=== PATIENT | male | born 1995 | race Caucasian/White ===

== ENCOUNTER 2018-03-18 22:35 | Emergency (ER) | payer OTHER ==
[~2018-03-18] VITALS: Ht 167.6 cm; Wt 59.4 kg
--- NOTE | 2018-03-18 23:12 | RADIOLOGY REPORT ---
EXAMINATION: XR CHEST CLINICAL INFORMATION: Dry cough. Shortness of breath. COMPARISON: None TECHNIQUE: 2 views of the chest were obtained. FINDINGS: There is a small patchy infiltrate in the right upper lobe mid lung seen on the PA view of chest. The left lung is clear. There is no pleural effusion. The heart size is normal. The cardiac and mediastinal contours are normal. There is no pulmonary vascular congestion. IMPRESSION: Small patchy right upper lobe pneumonia.
[2018-03-18] MEDS ORDERED: DOXYCYCLINE HY100 M2 PO (23:24)
--- NOTE | 2018-03-18 23:25 | ED INFLUENZA/URI COMPLAINT ---
History of Present Illness General Chief Complaint: Upper Respiratory Sx/Fever Stated Complaint: COUGH AND CONGESTION X 2 DAYS NOW TEMP 104.4 Source: patient Exam Limitations: no limitations Vital Signs & Intake/Output Vital Signs & Intake/Output Vital Signs Date Time Temp Pulse Resp B/P B/P Pulse O2 O2 Flow FiO2 Mean Ox Delivery Rate 03/18 2328 100.1 64 18 122/62 98 Room Air 03/18 2320 98 Room Air 03/18 2314 100.1 03/18 2314 100.1 03/181 102.0 03/188 102.0 65 18 125/65 97 Room Air ED Intake and Output 03/19 0000 03/18 1200 Intake Total 0 Output Total Balance 0 Intake, Oral 0 Patient 131 lb Weight Weight Reported by Patient Measurement Method Allergies Coded Allergies: cat dander (ITCHY PER PT 03/18/18) Reconcile Medications Doxycycline Hyclate 100 MG CAPSULE 1 CAP PO BID pneumonia Triage Note: PT FROM HOME C/O X1 DAY WITH DRY COUGH. PT STATES SOB, CHEST CONGESTION PER PT. PT DENIES CP. TEMP IN TRIAGE 102.0. PT LAST MEDICATED WITH 800MG MOTRIN AROUND 2200. PT A&0X3. Triage Nurses Notes Reviewed? yes Onset: Abrupt Duration: day(s): (couple) Timing: recent history Severity: moderate, severe No Modifying Factors: none HPI: 22-year-old male comes into the emergency room with fever chills cough mucus production facial pressure. It has been going on for the past couple days. Denies any other associated symptoms. Nothing seems to make the symptoms better or worse. Comes in for further evaluation. (Cuong Lomax) Past History Travel History Traveled to [place] past 21 day No Medical History Any Pertinent Medical History? see below for history Neurological: NONE EENT: NONE Cardiovascular: NONE Respiratory: NONE Gastrointestinal: NONE Hepatic: NONE Renal: NONE Musculoskeletal: NONE Psychiatric: NONE Endocrine: NONE Surgical History Surgical History: non-contributory Psychosocial History What is your primary language Bulgarian Tobacco Use: Quit >30 days ago ETOH Use: occasional use Illicit Drug Use: denies illicit drug use Family History Hx Contributory? No (Cuong Lomax) Review of Systems Review of Systems Constitutional: Reports: see HPI. EENTM: Reports: see HPI. Respiratory: Reports: see HPI. Cardiovascular: Reports: no symptoms. GI: Reports: no symptoms. Genitourinary: Reports: no symptoms. Musculoskeletal: Reports: no symptoms. Skin: Reports: no symptoms. Neurological/Psychological: Reports: no symptoms. Hematologic/Endocrine: Reports: no symptoms. Immunologic/Allergic: Reports: no symptoms. All Other Systems: Reviewed and Negative (Cuong Lomax) Physical Exam Physical Exam General Appearance: well developed/nourished, no apparent distress, alert, awake Head: atraumatic, normal appearance Eyes: Bilateral: normal appearance. Ears, Nose, Throat: moist mucous membrane, hearing grossly normal Neck: normal inspection Respiratory: normal breath sounds, no respiratory distress Back: normal inspection Extremities: normal inspection Neurologic/Psych: awake, alert Skin: intact, normal color Core Measures Sepsis Present: No Sepsis Focused Exam Completed? No (Cuong Lomax) Progress Differential Diagnosis: influenza, pneumonia, pharyngitis, sinusitis Plan of Care: 03/18/2018 11:56:44 PM Symptoms most consistent with pneumonia. Patient treated with antibiotics. Due to the fact that he is going to be going inot [employer] and has basic training in a few weeks I avoided fluoroquinolones to avoid any potential tendon rupture. Patient was prescribed doxycycline. Repeat chest x-ray in 2 weeks. Return if any other concerns. Diagnostic Imaging: Viewed by Me: Radiology Read. Discussed w/RAD: Radiology Read. Radiology Impression: PATIENT: LUCIE CONNOR PRESENT AGE: 22 PATIENT ACCOUNT NO: [id number] : 96 LOCATION: [facility] ORDERING PHYSICIAN: Rashi Mckeon MD SERVICE DATE: 03/18/18 EXAM TYPE: RAD - XRY-CHEST XRAY, TWO VIEWS EXAMINATION: XR CHEST CLINICAL INFORMATION: Dry cough. Shortness of breath. COMPARISON: None TECHNIQUE: 2 views of the chest were obtained. FINDINGS: There is a small patchy infiltrate in the right upper lobe mid lung seen on the PA view of chest. The left lung is clear. There is no pleural effusion. The heart size is normal. The cardiac and mediastinal contours are normal. There is no pulmonary vascular congestion. IMPRESSION: Small patchy right upper lobe pneumonia. DICTATED BY: Dilshad Bermudez MD DATE/TIME DICTATED:2306 REACH LIFT TRUCK DRIVER:MARKUS DATE/TIME TRANSCRIBED:03/18/182306 CONFIDENTIAL, DO NOT COPY WITHOUT APPROPRIATE AUTHORIZATION. <Electronically signed in Other Vendor System> SIGNED BY: Dilshad Bermudez MD 03/18/18 7009 Initial ED EKG: none (Cuong Lomax) Departure Departure Disposition: HOME OR SELF CARE Condition: Stable Clinical Impression Primary Impression: Right upper lobe pneumonia Referrals: Patient Has No Primary Care Dr (PCP/Family) Additional Instructions: Take doxycycline as prescribed. Take Tylenol for fever. Return if any concerns worsening symptoms. Please go over all results of today's visit with your primary care doctor. Contact your primary care doctor to let them know you were here in the emergency room. There may be nonspecific findings which may not be related to your visit today here in the emergency room but may require further evaluation and chronic monitoring by your primary care doctor. If you had a laceration today the chance of foreign body always remains. You should follow-up with your primary care doctor for recheck in 3-5 days for a wound check. If you had an x-ray done there is a chance that a fracture could have been missed on initial read and you should follow-up with your primary care doctor for repeat x-rays if symptoms persist. If your blood pressure was elevated here in the emergency room please have rechecked by [facility] primary care doctor within the next 48. If you were prescribed a narcotic here in the emergency room or any type of controlled substances you're not allowed to drive while taking this medication or operate any type of heavy machinery. Narcotics can make you feel lightheaded dizziness nausea and can cause constipation. You may need to shredder picker a stool softener. Thank you for choosing [facility] emergency room. Please return to the emergency room immediately if you have any other concerns worsening of symptoms. Departure Forms: Customer Survey General Discharge Information Prescriptions: Current Visit Scripts Doxycycline Hyclate 1 CAP PO BID #20 CAP (Cuong Lomax) PA/SHANK SCOURER Co-Sign Statement Statement: ED Attending supervision documentation- [] I saw and evaluated the patient. I have also reviewed all the pertinent lab results and diagnostic results. I agree with the findings and the plan of care as documented in the PA's/SHANK SCOURER's documentation. [x] I have reviewed the ED Record and agree with the PA's/SHANK SCOURER's documentation. [] Additions or exceptions (if any) to the PAs/SHANK SCOURER's note and plan are summarized below: [] (Kajal BORGES,Donald Redman)
[2018-03-18 23:28] VITALS: BP 122/62
== END 2018-03-18 23:29 ==
LOC: ERH 22:35
DX: J18.9 Pneumonia, unspecified organism (principal); Z87.891 Personal history of nicotine dependence
CPT/HCPCS: 71046